=== PATIENT | male | born 1960 ===

== ENCOUNTER 2024-02-05 05:00 | Day surgery (SDC) | payer OTHER ==
[~2024-02-05] VITALS: Ht 213.4 cm; Wt 5.0 kg
[2024-02-05] MEDS ORDERED: METRONIDAZOLE/SODIUM CHLORIDE 500 MG/100 ML PIGGYBACK IV ONE (08:09)
[2024-02-05] MEDS ORDERED: CEFTRIAXONE SODIUM 2,000 MG VIAL ONE (08:09)
[2024-02-05] MEDS ORDERED: POVIDONE-IODINE 118 ML BOTT TOP ONE (08:47)
[2024-02-05] MEDS ORDERED: HEMOSTATIC MATRIX 1 KIT KIT TOP ONE (08:47)
[2024-02-05] MEDS ORDERED: ACETAMINOPHEN500 M2 PO (09:05)
[2024-02-05] MEDS ORDERED: COLACE100 MG PO (09:05)
[2024-02-05] MEDS ORDERED: NEURONTIN300 MG PO (09:05)
== END 2024-02-05 17:40 | disposition home or self-care (01) ==
LOC: CIR.AMB 05:00
PROVIDERS: ATTEND Surgery
DX: C20 Malignant neoplasm of rectum (principal); D12.8 Benign neoplasm of rectum; D37.5 Neoplasm of uncertain behavior of rectum; K62.5 Hemorrhage of anus and rectum; Z88.6 Allergy status to analgesic agent; M19.90 Unspecified osteoarthritis, unspecified site; C44.90 Unspecified malignant neoplasm of skin, unspecified; M79.7 Fibromyalgia; E78.00 Pure hypercholesterolemia, unspecified; I10 Essential (primary) hypertension